=== PATIENT | female | born 1975 | race Hispanic/Latino ===

== ENCOUNTER → 2025-01-15 | Emergency (ER) | payer BC ==
[2025-01-15 14:16] LABS: IMMATURE GRANULOCYTE ABSOLUTE 0.02 K/uL (0-1); NUCLEATED RED BLOOD CELLS 0.0 % (0.0-0.19); PLATELET COUNT (AUTO) 234 K/uL (130-400); RED BLOOD CELL COUNT(AUTO) 5.15 MIL/uL (4.00-5.50); RED CELL DISTRIBUTION WIDTH 17.9 % (11.0-15.5); WHITE BLOOD COUNT (AUTO) 7.9 K/uL (4.8-10.8)
[2025-01-15 14:19] LABS: CREATININE 0.9 mg/dL (0.5-1.0); GLOMERULAR FILTR. RATE CALC 77.0 mL/min (>90); GLUCOSE,RANDOM 113.0 mg/dL (70-105); SODIUM SERUM 145.0 mmol/L (136-145); UREA NITROGEN, BLOOD 21.0 mg/dL (7-18)
[2025-01-15] MEDS: 0.9%NACL 1000ML 1,000 ML IV ONE (14:30)
--- NOTE | 2025-01-15 14:57 | EKG ---
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
[2025-01-15 15:03] LABS: APPEARANCE,URINE CLEAR (CLEAR); GLUCOSE, URINE (UA) NEGATIVE (NEGATIVE); LEUKOCYTE ESTERASE ,URINE NEGATIVE Leu/uL (NEGATIVE); NITRATE,URINE 1+ (NEGATIVE); OCCULT BLOOD,URINE LARGE (NEGATIVE); SQUAMOUS EPITHELIAL CELL,UR RARE /HPF (0-2)
[2025-01-15 15:07] LABS: AMPHET/METH SCREEN,URINE NEGATIVE (NEGATIVE); BARBITURATE SCREEN, URINE NEGATIVE (NEGATIVE); CANNABINOID SCREEN,URINE NEGATIVE (NEGATIVE); COCAINE SCREEN,URINE POSITIVE (NEGATIVE)
[2025-01-15 16:11] VITALS: BP 146/84; PULSE 78; RESP 19; TEMP 97.9; O2SAT 97
--- NOTE | 2025-01-15 16:11 | ERN ---
General Chief Complaint: Headache Stated Complaint: HEADACHE Time Seen by MD: 13:28 Time Seen by Midlevel: 13:28 Source: patient History of Present Illness Initial Comments 49-year-old female who presents to the emergency department due to a headache. Patient states the pain was radiating to her right arm and right hand. States she did cocaine at 9:30 a.m., patient then initiated feeling weak and sweating. Patient took Motrin, Tylenol, flanax (naproxen). PMHx anemia Allergies: Coded Allergies: No Known Drug Allergies (Unverified Allergy, Unknown, 01/15/25) Past Medical History Past Medical History: Anemia Past Surgical History: ROS Dictation Constitutional: Negative for fever,chills, and weight loss Eyes: Negative for injury, pain,redness, and discharge ENT: Negative for injury,pain or swelling Cardiovascular: Negative for chest pain, palpitations, and edema Respiratory: Negative for shortness of breath, cough, and wheezing, Abdomen/GI: Negative for abdominal pain, nausea, vomiting, diarrhea, and constipation Back: Negative for injury and pain : Negative for painful urination, bleeding or discharge MS/Extremity: Negative for injury and deformity Skin: Negative for rash, and discoloration Neuro: Positive for headache, generalized weakness Negative for numbness, tingling, and seizure Psych: Negative for suicide ideation, homicidal ideation, and hallucinations Physical Exam Physical Exam Dictation General: awake, alert, no acute distress Head/Face: Normocephalic, atraumatic Eyes: PERRL, EOMI, normal conjunctiva ENT: oral cavity clear, oral mucosa moist Neck: Supple, normal range of motion Cardiovascular: RRR, normal S1/S2 Respiratory: CTAB, no respiratory distress, no rales or wheezes Abdomen: Soft, non-tender, non-distended, normal bowel sounds, no guarding or rebound. Skin: Warm, dry, normal turgor, no rash MS/Extremity: Pulses equal, no cyanosis, neurovascular intact, FROM Neuro: COAx4, GCS 15, strength 5/5, CN 2-12 intact, normal cerebellar exam, normal gait, Psych: Normal behavior, mood, and affect normal Results Laboratory and Microbiology Lab and Micro Result Laboratory Tests Test 01/15/25 14:08 01/15/25 14:28 White Blood Count 7.9 K/uL (4.8-10.8) Red Blood Count 5.15 MIL/uL (4.00-5.50) Hemoglobin 12.2 g/dL (12.0-16.0) Hematocrit 39.2 % (36-48) Mean Corpuscular Volume 76.1 fL (79-99) L Mean Corpuscular Hemoglobin 23.7 pg (27.0-33.0) L Mean Corpuscular Hemoglobin Concent 31.1 g/dL (32.0-36.0) L Red Cell Distribution Width 17.9 % (11.0-15.5) H Platelet Count 234 K/uL (130-400) Mean Platelet Volume 9.8 fL (7.5-10.5) Immature Granulocyte % (Auto) 0.3 % (0-1) Neutrophils (%) (Auto) 67.9 % (40.0-77.0) Lymphocytes (%) (Auto) 19.7 % (21.0-51.0) L Monocytes (%) (Auto) 8.9 % (3.0-13.0) Eosinophils (%) (Auto) 2.3 % (0.0-8.0) Basophils (%) (Auto) 0.9 % (0.0-5.0) Neutrophils # (Auto) 5.4 K/uL (1.8-7.7) Lymphocytes # (Auto) 1.6 K/uL (1.0-4.8) Monocytes # (Auto) 0.7 K/uL (0.1-1.0) Eosinophils # (Auto) 0.18 K/uL (0.00-0.70) Basophils # (Auto) 0.07 K/uL (0.00-0.20) Absolute Immature Granulocyte (auto 0.02 K/uL (0-1) Nucleated Red Blood Cells 0.0 % (0.0-0.19) Red Blood Cell Morphology See comments Sodium Level 145 mmol/L (136-145) Potassium Level 4.4 mmol/L (3.5-5.1) Chloride Level 107 mmol/L (101-111) Carbon Dioxide Level 29 mmol/L (21-32) Blood Urea Nitrogen 21 mg/dL (7-18) H Creatinine 0.9 mg/dL (0.5-1.0) Glomerular Filtration Rate Calc 77 mL/min (>90) Random Glucose 113 mg/dL (70-105) H Total Calcium 9.2 mg/dL (8.5-10.1) Troponin I High Sensitivity 6 ng/L (4-50) Urine Color YELLOW (YELLOW) Urine Appearance CLEAR (CLEAR) Urine pH 5.5 (5.0-8.0) Urine Specific Kila 1.037 (1.001-1.031) Urine Protein 30 mg/dL (NEGATIVE) H Urine Glucose (UA) NEGATIVE mg/dL (NEGATIVE) Urine Ketones NEGATIVE mg/dL (NEGATIVE) Urine Occult Blood LARGE (NEGATIVE) H Urine Nitrate 1+ (NEGATIVE) H Urine Bilirubin NEGATIVE mg/dL (NEGATIVE) Urine Urobilinogen 2.0 mg/dL (0.2-1.0) H Urine Leukocyte Esterase NEGATIVE Gregorio/uL Urine RBC 11-25 /HPF (0-1) H Urine WBC 2-5 /HPF (0-1) H Urine Squamous Epithelial Cells RARE /HPF (0-2) Urine Bacteria MOD /HPF (None Seen) Urine Opiates Screen NEGATIVE (NEGATIVE) Urine Barbiturates Screen NEGATIVE (NEGATIVE) Urine Phencyclidine Screen NEGATIVE (NEGATIVE) Urine Amphetamines Screen NEGATIVE (NEGATIVE) Urine Benzodiazepines Screen NEGATIVE (NEGATIVE) Urine Cocaine Screen POSITIVE (NEGATIVE) H Urine Marijuana (THC) Screen NEGATIVE (NEGATIVE) Labs Reviewed?: Yes EKG/XRAY/US/CT/MRI EKG Comment Date: 01/15/25 Time: 1332 Rate: 104 EKG interpretation: Sinus tachycardia, left bundle branch block, ST elevation secondary to IVCD Reviewed by ED Attending MDM MDM: Differential diagnosis: Drug use, electrolyte imbalance, dehydration, migraine Rationale: 38-year-old male who presents to the emergency department with parents due to redness and swelling of the chest. Patient had pacemaker placed on 12/14/24. Per parents patient had a clot to the right upper extremity for which he was hospitalized and discharged on 12/26/2024. Patient is currently taking Xarelto. Mother states she noticed the redness in the swelling yesterday. Denies any fevers, shortness of breath or further associated symptoms. PMHx hypothyroidism, down syndrome, pacemaker Per physical examination patient is in no acute distress, neurologically intact, normal range of motion of the neck, normal range of motion of the right arm, neurovascularly intact. Labs obtained CBC and chemistry are nonspecific. Troponin within normal limits. Urine tox screen positive for cocaine. Initially patient tachycardic heart rate improved to 78. Patient received 1 L NS on re-examination verbalized headache had resolved. Patient was educated on findings and diagnosis. Advised to follow up with PCP. Return to the emergency department for any worsening symptoms. Patient verbalized understanding. Patient stable for discharge. There are no social concerns with this patient. I independently interpreted the test that were performed, results were reviewed by me and considered findings on radiology if ordered. Medical management and examination interpretation discussions were had by me with other qualified healthcare professionals as indicated for the patient's care. ED Course Orders Procedure Category Date Status Time Cbc With Differential LAB 01/15/25 Complete 13:53 Basic Metabolic Panel LAB 01/15/25 Complete 13:53 Urinalysis LAB 01/15/25 Complete W/Microscopic 13:53 Drug Screen Urine LAB 01/15/25 Complete 13:53 Troponin I High LAB 01/15/25 Complete Sensitivity 13:53 12 Lead Ekg Tracing- EKG 01/15/25 Complete Technical 13:53 0.9%Nacl 1000ml (Ns PHA 01/15/25 Complete 1000ml) 15:00 Culture Urine CAMERON 01/15/25 In Process 15:03 Current Medications Medications (Trade) Dose Ordered Sig/Abril Route PRN Reason Start Time Stop Time Status Last Admin Dose Admin Sodium Chloride 1,000 ml @ 0 mls/hr ONCE ONCE IV 01/15/25 15:00 01/15/25 15:01 DC Vital Signs Date Time Temp Pulse Resp B/P (MAP) Pulse Ox O2 Delivery O2 Flow Rate FiO2 01/15/25 16:11 97.9 78 19 146/84 97 Room Air* 0 01/15/25 14:36 98.8 115 22 153/97 98 Room Air* 0 21 01/15/25 13:33 98.4 110 20 131/87 99 Room Air* 0 01/15/25 13:28 98.4 110 20 131/87 99 0 DX & DISP Disposition: Discharge Departure Impression: Primary Impression: Cocaine abuse Additional Impression: Headache Condition: Stable Additional Instructions: Discharge home. Rest. Follow up with primary care in 24 hours. Return to the ER for any acute changes or worsening symptoms. If any medications were prescribed take as directed. Okay to continue home medications unless otherwise discussed during your visit in the emergency room today. Patient was also advised to follow-up with primary care physician in 1 to 2 days for continued monitoring. Referrals: SELF,REFERRAL (PCP) I performed the substantive portion of the visit. I have reviewed and personally made and approve the management plan that is documented in the notes by myself or the FERNIE. I acknowledge full responsibility for the patient's management plan. ALAN HUCTHINSON Jan 15, 2025 16:11
== END ==
LOC: EDH 13:24 → EEVIPCON 13:24
DX: F14.10 Cocaine abuse, uncomplicated (principal); R51.9 Headache, unspecified
CPT/HCPCS: 99284; 96360; 96361; 84484; 80048; 80305; 85025; 87086 ×2; 87186; 36415; 93005; 81001; J7030